=== PATIENT | female | born 1995 | race Caucasian/White ===

== ENCOUNTER 2018-10-28 19:14 | Emergency (ER) | payer OTHER ==
[~2018-10-28] VITALS: Ht 165.1 cm; Wt 54.4 kg
--- NOTE | 2018-10-28 19:30 | NUR ---
Pt. ambulated into ED w/ c/o multiple self-inflicted bilat. UE/forearm lacerations, pt. states she cut herself w/ a knife at approx. 0100AM last night because of her eating disorder, pt. also has multiple bilat. self-inflicted lacerations to both thighs that she states she did 2 days ago, pt. denies SI and has no thoughts about hurting herself, A/Ox4, RR even and unlabored, VSS,
--- NOTE | 2018-10-28 19:40 | NUR ---
Family Intervention Specialist called for pt. to be put on 1:1 - instructed to use security,
[2018-10-28] MEDS ORDERED: TDAP DIPH,PERTUSS,TET VAC/PF 0.5 ML DISP.SYRIN IM ONE ×2 (19:45→19:56)
--- NOTE | 2018-10-28 19:45 | NUR ---
Security at bedside for 1:1 sitter - suicide precautions,
[2018-10-28 19:53] LABS: BASOPHILS # (AUTO) 0.1 K/uL (0.0-8.0); BASOPHILS % (AUTO) 2.2 % (0.0-2.0); EOSINOPHILS % (AUTO) 1.1 % (0.0-7.0); HEMATOCRIT 37.6 % (31.2-41.9); HEMOGLOBIN 12.9 g/dL (10.9-14.3); LYMPHOCYTES # (AUTO) 1.7 K/uL (20.0-40.0); LYMPHOCYTES % (AUTO) 40.5 % (20.5-51.5); MEAN CORPUSCULAR HEMOGLOBIN 28.6 uug (24.7-32.8); MEAN CORPUSCULAR HGB CONC 34 g/dL (32.3-35.6); MEAN CORPUSCULAR VOLUME 83.5 fL (75.5-95.3); MONOCYTES # (AUTO) 0.6 K/uL (2.0-10.0); MONOCYTES % (AUTO) 14.2 % (0.0-11.0); NEUTROPHILS # (AUTO) 1.8 K/uL (1.8-8.9); PLATELET COUNT (AUTO) 194 K/uL (179-408); WHITE BLOOD COUNT (AUTO) 4.2 K/uL (3.8-11.8)
[2018-10-28 19:57] LABS: *URINE HCG, QUAL NEGATIVE (NEGATIVE)
[2018-10-28 20:02] LABS: CREATININE 1.1 mg/dL (0.6-1.3); POTASSIUM 3.1 mmol/L (3.5-5.1)
--- NOTE | 2018-10-28 20:04 | NUR ---
Spoke with Melania from PET team per MD request.
--- NOTE | 2018-10-28 20:07 | NUR ---
Dr. De Los Santos in w/ pt., for suture procedure,
[2018-10-28 20:09] LABS: *AMPHETAMINE, URINE NEGATIVE (NEGATIVE); *BARBITURATE, URINE NEGATIVE (NEGATIVE); *CANNABINOID, URINE NEGATIVE (NEGATIVE); *COCCAINE, URINE NEGATIVE (NEGATIVE); *OPIATE, URINE NEGATIVE (NEGATIVE); *PHENCYCLIDINE SCREEN,URINE NEGATIVE (NEGATIVE)
[2018-10-28] MEDS ORDERED: KETOROLAC TROMETHAMINE 30 MG INJ ONE (20:11)
[2018-10-28] MEDS ORDERED: KETOROLAC TROMETHAMINE 30 MG INJ IM ONE (20:15)
--- NOTE | 2018-10-28 20:19 | NUR ---
Paged PET team for psych evaluation. Melania [place] 1 hr.
[2018-10-28] MEDS ORDERED: POTASSIUM CHLORIDE 20 MEQ TAB.PRT.SR PO ONE (20:30)
[2018-10-28] MEDS ORDERED: POTASSIUM CHLORIDE 20 MEQ TAB.PRT.SR ONE (20:31)
--- NOTE | 2018-10-28 20:39 | NUR ---
Pt. belongings taken and kept at nurse station,
--- NOTE | 2018-10-28 20:59 | NUR ---
[employer] Supervisor at bedside,
[2018-10-28] MEDS ORDERED: DOXYCYCLINE HYCLATE 100 MG TABLET PO ONE (23:00)
[2018-10-28] MEDS ORDERED: DOXYCYCLINE HYCLATE 100 MG TABLET ONE (23:18)
--- NOTE | 2018-10-28 23:20 | NUR ---
Wound rinsed and cleaned w/ normal saline and sterile gauze, dressed w/ sterile gauze and pressure dressing,
--- NOTE | 2018-10-28 23:49 | NUR ---
CMS intact bilat.,
--- NOTE | 2018-10-28 23:50 | NUR ---
Patient discharged to home in stable conditon. Written and verbal after care instructions given. Patient verbalizes understanding of instructions. Pt. d/c w/ prescription per MD order, all belongings w/ pt., ID band removed, ambulated off unit w/ steady gait, NAD,
== END 2018-10-28 23:51 | disposition home or self-care (01) ==
LOC: ER 19:19
DX: S71.111A Laceration without foreign body, right thigh, initial encounter (principal); S51.812A Laceration without foreign body of left forearm, initial encounter; S51.811A Laceration without foreign body of right forearm, initial encounter; J45.909 Unspecified asthma, uncomplicated; Z88.0 Allergy status to penicillin; Z88.1 Allergy status to other antibiotic agents; Y28.1XXA Contact with knife, undetermined intent, initial encounter; Y93.89 Activity, other specified; Y92.89 Other specified places as the place of occurrence of the external cause; Y99.8 Other external cause status
CPT/HCPCS: 12006; 36415; 80048; 80307; 84703; 85025; 90471; 90715; 96372; 99284; G0480; J1885; A4217; A4663

== ENCOUNTER 2018-11-10 07:38 | Emergency (ER) | payer OTHER ==
[~2018-11-10] VITALS: Ht 165.1 cm; Wt 54.4 kg
--- NOTE | 2018-11-10 07:43 | NUR ---
SUPRIYA CHEUNG AT BEDSIDE FOR MSE AND SUTURE REMOVAL.
--- NOTE | 2018-11-10 07:57 | NUR ---
Patient discharged to home in stable conditon. Written and verbal after care instructions given. Patient verbalizes understanding of instructions. ALL BELONGINGS W/ PT. PT SELF-AMBULATED W/O DIFFICULTY.
[2018-11-10 07:58] VITALS: BP 118/72
== END 2018-11-10 07:58 | disposition home or self-care (01) ==
LOC: ER 07:38
DX: S51.812D Laceration without foreign body of left forearm, subsequent encounter (principal); S51.811D Laceration without foreign body of right forearm, subsequent encounter; J45.909 Unspecified asthma, uncomplicated; Z88.0 Allergy status to penicillin; Z88.1 Allergy status to other antibiotic agents; X58.XXXD Exposure to other specified factors, subsequent encounter
CPT/HCPCS: A4663

== ENCOUNTER 2018-12-27 19:47 | Emergency (ER) | payer OTHER ==
[~2018-12-27] VITALS: Ht 165.1 cm; Wt 55.0 kg
[2018-12-27] MEDS ORDERED: DEXTROSE 50% 50 ML DISP.SYRIN ONE (20:09)
[2018-12-27] MEDS ORDERED: IV NORMAL SALINE 1000 ML BAG IV ONE ×3 (20:15→21:00)
[2018-12-27] MEDS ORDERED: DEXTROSE 50% 50 ML DISP.SYRIN IV ONE (20:15)
[2018-12-27] MEDS ORDERED: THIAMINE HCL 200 MG/2 ML VIAL IV ONE (20:15)
[2018-12-27] MEDS ORDERED: THIAMINE HCL 200 MG/2 ML VIAL ONE (20:23)
[2018-12-27 20:31] LABS: BASOPHILS % (AUTO) 0.2 % (0.0-2.0); HEMATOCRIT 37.7 % (31.2-41.9); HEMOGLOBIN 12.3 g/dL (10.9-14.3); LYMPHOCYTES # (AUTO) 1.5 K/uL (20.0-40.0); LYMPHOCYTES % (AUTO) 7.9 % (20.5-51.5); MEAN CORPUSCULAR HEMOGLOBIN 30.1 uug (24.7-32.8); MEAN CORPUSCULAR HGB CONC 33 g/dL (32.3-35.6); MEAN CORPUSCULAR VOLUME 92.6 fL (75.5-95.3); MONOCYTES # (AUTO) 0.8 K/uL (2.0-10.0); MONOCYTES % (AUTO) 4.2 % (0.0-11.0); NEUTROPHILS # (AUTO) 16.8 K/uL (1.8-8.9); NEUTROPHILS % (AUTO) 87.7 % (38.5-71.5); PLATELET COUNT (AUTO) 215 K/uL (179-408); RED BLOOD CELL COUNT(AUTO) 4.07 MIL/uL (3.63-4.92); WHITE BLOOD COUNT (AUTO) 19.2 K/uL (3.8-11.8)
[2018-12-27 20:43] LABS: BILIRUBIN,DIRECT 0.2 mg/dL (0.0-0.2); BILIRUBIN,TOTAL 0.5 mg/dL (0.2-1.0); CREATININE 1.2 mg/dL (0.6-1.3); POTASSIUM 3.5 mmol/L (3.5-5.1); TOTAL PROTEIN, SERUM 6.5 g/dL (6.4-8.2)
[2018-12-27 22:15] VITALS: BP 114/47
--- NOTE | 2018-12-27 22:15 | NUR ---
Patient discharged to home in stable conditon. Written and verbal after care instructions given. Patient verbalizes understanding of instructions. PATIENT LEFT WITH STABLE GAIT.
== END 2018-12-27 22:16 | disposition home or self-care (01) ==
LOC: ER 19:49
DX: F10.239 Alcohol dependence with withdrawal, unspecified (principal); J45.909 Unspecified asthma, uncomplicated; Z88.0 Allergy status to penicillin; Z88.1 Allergy status to other antibiotic agents; Y90.9 Presence of alcohol in blood, level not specified
CPT/HCPCS: 36415; 71045; 80048; 80076; 82962; 83690; 84484; 85025; 85730; 93005; 96361; 96374; 96375; 99284; J3411; J3490; 70030-TC; A4663; J7030

== ENCOUNTER 2019-01-24 01:59 | Emergency (ER) | payer OTHER ==
[~2019-01-24] VITALS: Ht 165.1 cm; Wt 54.4 kg
--- NOTE | 2019-01-24 02:15 | NUR ---
Pt. BIB [facility]09 for ETOH intoxication, pt. is alert but does not speak w/ complete thought patterns, obeys commands, pt. in tears and sobbing, denies ingesting any ilicit substances or alcohol, states she has an eating disorder,
--- NOTE | 2019-01-24 02:44 | NUR ---
Phleb. tech. at bedside for blood draw,
--- NOTE | 2019-01-24 02:45 | NUR ---
Pt. up to use restroom, ambulates w/ steady gait,
[2019-01-24 02:52] LABS: BASOPHILS # (AUTO) 0.1 K/uL (0.0-8.0); EOSINOPHILS % (AUTO) 0.6 % (0.0-7.0); HEMATOCRIT 37.8 % (31.2-41.9); HEMOGLOBIN 12.7 g/dL (10.9-14.3); LYMPHOCYTES # (AUTO) 1.6 K/uL (20.0-40.0); LYMPHOCYTES % (AUTO) 28.3 % (20.5-51.5); MEAN CORPUSCULAR HGB CONC 34 g/dL (32.3-35.6); MEAN CORPUSCULAR VOLUME 92.4 fL (75.5-95.3); MONOCYTES # (AUTO) 0.6 K/uL (2.0-10.0); MONOCYTES % (AUTO) 11.3 % (0.0-11.0); NEUTROPHILS # (AUTO) 3.4 K/uL (1.8-8.9); NEUTROPHILS % (AUTO) 58.8 % (38.5-71.5); PLATELET COUNT (AUTO) 261 K/uL (179-408); RED BLOOD CELL COUNT(AUTO) 4.09 MIL/uL (3.63-4.92); WHITE BLOOD COUNT (AUTO) 5.7 K/uL (3.8-11.8)
--- NOTE | 2019-01-24 02:53 | NUR ---
Spoke w/ grandmother on the phone, spoke w/ grandmother on the phone,
[2019-01-24 03:33] LABS: ETHANOL 395 MG/DL (0-0)
[2019-01-24 03:36] LABS: ALANINE AMINOTRANSFERASE 143 U/L (14-59); ALKALINE PHOSPHATASE 142 U/L (50-136); ASPARTATE AMINOTRANSFERASE 128 U/L (15-37); BILIRUBIN,DIRECT 0.5 mg/dL (0.0-0.2); BILIRUBIN,TOTAL 0.8 mg/dL (0.2-1.0); CARBON DIOXIDE 33 mmol/L (21-32); CHLORIDE 100 mmol/L (98-107); CREATININE 1.2 mg/dL (0.6-1.3); GLUCOSE 70 mg/dL (74-106); POTASSIUM 3.4 mmol/L (3.5-5.1); TOTAL PROTEIN, SERUM 6.3 g/dL (6.4-8.2); UREA NITROGEN, BLOOD 12 mg/dL (7-18)
[2019-01-24 03:37] LABS: ACETAMINOPHEN < 2.0 ug/mL (10-30)
[2019-01-24 03:43] LABS: THYROID STIMULATING HORMONE 0.858 mIU/mL (0.358-3.740)
--- NOTE | 2019-01-24 03:57 | NUR ---
Pt. given warm blankets for comfort, bedrails up, bed in low position, wheels locked, all needs met,
--- NOTE | 2019-01-24 04:46 | NUR ---
Pt. up to use restroom, walks w/ steady gait, urine specimen collected and sent to lab,
[2019-01-24 05:12] LABS: *BILIRUBIN,URIN NEGATIVE (NEGATIVE); *BLOOD, URINE NEGATIVE (NEGATIVE); *CLARITY,URINE CLEAR (CLEAR); *COLOR,URINE YELLOW (YELLOW); *KETONES,URINE NEGATIVE (NEGATIVE); LEUKOCYTE ESTERASE ,URINE NEGATIVE (NEGATIVE); NITRITE, URINE NEGATIVE (NEGATIVE); PH,URINE 7.5 (5.0-8.0); UGLUCOSE NEGATIVE (NEGATIVE)
--- NOTE | 2019-01-24 05:19 | NUR ---
Pt. resting in bed w/ eyes closed, NAD
[2019-01-24 05:23] LABS: *URINE HCG, QUAL NEGATIVE (NEGATIVE)
[2019-01-24 05:24] LABS: *AMPHETAMINE, URINE NEGATIVE (NEGATIVE); *BARBITURATE, URINE NEGATIVE (NEGATIVE); *CANNABINOID, URINE NEGATIVE (NEGATIVE); *COCCAINE, URINE NEGATIVE (NEGATIVE); *OPIATE, URINE NEGATIVE (NEGATIVE); *PHENCYCLIDINE SCREEN,URINE NEGATIVE (NEGATIVE)
[2019-01-24 05:30] LABS: BACTERIA,URINE NONE SEEN /HPF (NONE SEEN); RBC,URINE 0-3 /HPF (0-3); SQUAMOUS EPITHELIAL CELL,UR FEW /HPF (NONE SEEN); URINE AMORPHOUS PHOSPHATES FEW /HPF; WBC,URINE 0-3 /HPF (0-3)
--- NOTE | 2019-01-24 06:00 | NUR ---
Pt. resting in bed w/ eyes close, NAD
--- NOTE | 2019-01-24 07:49 | NUR ---
pt is fully awake. dr Parrish re-evaluated the pt. no s/s of acute distress at this time. gait is stable. no n/v. no sob. pt denies pain.
--- NOTE | 2019-01-24 07:59 | NUR ---
PT WAS D/C'd TO HOME BY DR HANCOCK. D/C INSTRUCTIONS GIVEN TO THE PT.
[2019-01-24 08:02] VITALS: BP 129/86
== END 2019-01-24 08:03 | disposition home or self-care (01) ==
LOC: ER 02:01
DX: F10.129 Alcohol abuse with intoxication, unspecified (principal); J45.909 Unspecified asthma, uncomplicated; Z88.0 Allergy status to penicillin; Z88.1 Allergy status to other antibiotic agents; Y90.9 Presence of alcohol in blood, level not specified
CPT/HCPCS: 36415; 71045; 80048; 80076; 80307; 81000; 81001; 82962 ×2; 84443; 84703; 85025; 93005; 99284; G0480 ×2; G0481; A4663